=== PATIENT | male | born 2000 | race Caucasian/White ===

== ENCOUNTER 2023-05-15 09:50 | Inpatient (IN) ==
[2023-05-15 11:24] LABS: Hematocrit 36.2 % (38-53); Hemoglobin 12.5 g/dL (13.2-16.3); Mean Corpuscular Hemoglobin 28.9 pg (27-33); Mean Corpuscular Hgb Conc 34.5 g/dL (31-36); Mean Corpuscular Volume 83.8 fL (80-97); Platelet Count 256 10^3/uL (150-450); Red Blood Count 4.32 10^6/uL (4.06-5.63); Red Cell Distribution Width 13.3 % (12-17); White Blood Count 16.1 10^3/uL (3.6-10.2)
[2023-05-15 11:34] LABS: Calcium 8.8 mg/dL (8.6-10.3); Magnesium 1.9 mg/dL (1.9-2.7); Potassium 3.7 mmol/L (3.5-5.0)
[2023-05-15 11:40] LABS: C Reactive Protein 233.35 mg/L (<8.01); Creatinine, Serum 0.8 mg/dL (0.67-1.17); eGFR CKD-EPI 126.7 (>60)
[2023-05-15] MEDS ORDERED: Magnesium Sulfate IV 1GM/100ML 1 GM/100 ML BAG IV ONE (11:41)
[2023-05-15] MEDS ORDERED: Potassium Chlor 20 meq TAB.ER PO ONE (11:41)
[2023-05-15 12:48] LABS: Erythrocyte Sed Rate 31 mm/Hr (0-14)
[2023-05-15 13:06] LABS: High Sensitivity Troponin 1 Hr 3899 pg/mL (<20)
[2023-05-15 15:23] LABS: TSH Ultra Thyroid Stim Horm 1.26 mcIU/mL (0.34-5.60)
[2023-05-15 15:25] LABS: Free T3 3.92 pg/mL (2.5-3.9); Free T4 1.06 ng/dL (0.61-1.12)
[2023-05-15 15:31] LABS: High Sensitivity Troponin 3 Hr 6600 pg/mL (<20)
[2023-05-15] MEDS ORDERED: Benzocaine (plain) Lozenge 15 MG MT PRN (20:33)
[2023-05-16 06:38] LABS: Hematocrit 37.5 % (38-53); Hemoglobin 12.8 g/dL (13.2-16.3); Mean Corpuscular Hemoglobin 28.5 pg (27-33); Mean Corpuscular Hgb Conc 34.1 g/dL (31-36); Mean Corpuscular Volume 83.7 fL (80-97); Platelet Count 272 10^3/uL (150-450); Red Blood Count 4.47 10^6/uL (4.06-5.63); Red Cell Distribution Width 13.2 % (12-17); White Blood Count 14.5 10^3/uL (3.6-10.2)
[2023-05-16 06:45] LABS: Calcium 8.7 mg/dL (8.6-10.3); Creatinine, Serum 0.75 mg/dL (0.67-1.17); Magnesium 2.1 mg/dL (1.9-2.7); Potassium 4.1 mmol/L (3.5-5.0); eGFR CKD-EPI 129.2 (>60)
[2023-05-16 13:10] LABS: C Reactive Protein 220.9 mg/L (<8.01)
[2023-05-16 13:59] LABS: C Reactive Protein 198.01 mg/L (<8.01)
[2023-05-16 16:20] LABS: Rapid Strep Molecular Negative (Negative)
[2023-05-17 06:38] LABS: ABS Eosinophils 0.3 10^3/uL (0.0-0.5); ABS Lymphocytes 3.2 10^3/uL (1.0-4.8); ABS Monocytes 0.9 10^3/uL (0.0-1.1); ABS Neutrophils 5.4 10^3/uL (1.5-7.6); ABS Nucleated RBC 0.01 10^3/ul; Eosinophil % 2.7 %; Hemoglobin 13.8 g/dL (13.2-16.3); Lymphocyte % 32.2 %; Mean Corpuscular Hgb Conc 34.6 g/dL (31-36); Mean Corpuscular Volume 83.9 fL (80-97); Mean Platelet Volume 6.9 fL (7.5-11.2); Nucleated Red Blood Cells % 0.1 %/100WBC (0.0-0.8); Platelet Count 321 10^3/uL (150-450); Red Blood Count 4.77 10^6/uL (4.06-5.63); Red Cell Distribution Width 13.4 % (12-17); White Blood Count 9.9 10^3/uL (3.6-10.2)
[2023-05-17 06:48] LABS: C Reactive Protein 137.55 mg/L (<8.01); Calcium 8.9 mg/dL (8.6-10.3); Creatinine, Serum 0.77 mg/dL (0.67-1.17); eGFR CKD-EPI 128.2 (>60)
[2023-05-18 05:47] LABS: ABS Basophils 0.1 10^3/uL (0.0-0.1); ABS Eosinophils 0.2 10^3/uL (0.0-0.5); ABS Lymphocytes 3.1 10^3/uL (1.0-4.8); ABS Monocytes 0.9 10^3/uL (0.0-1.1); ABS Neutrophils 4.9 10^3/uL (1.5-7.6); ABS Nucleated RBC 0.01 10^3/ul; Eosinophil % 2.7 %; Hematocrit 38.9 % (38-53); Hemoglobin 13.5 g/dL (13.2-16.3); Lymphocyte % 33.7 %; Mean Corpuscular Hemoglobin 29.1 pg (27-33); Mean Corpuscular Hgb Conc 34.7 g/dL (31-36); Mean Corpuscular Volume 83.7 fL (80-97); Mean Platelet Volume 6.6 fL (7.5-11.2); Nucleated Red Blood Cells % 0.1 %/100WBC (0.0-0.8); Platelet Count 385 10^3/uL (150-450); Red Blood Count 4.65 10^6/uL (4.06-5.63); Red Cell Distribution Width 13.6 % (12-17); White Blood Count 9.1 10^3/uL (3.6-10.2)
[2023-05-18 06:03] LABS: Albumin 3.8 g/dL (3.2-5.2); Albumin/Globulin Ratio 1.2 (1-3); Calcium 8.8 mg/dL (8.6-10.3); Creatinine, Serum 0.78 mg/dL (0.67-1.17); Globulin 3.1 g/dL (2-4); Potassium 4.1 mmol/L (3.5-5.0); Total Bilirubin 0.2 mg/dL (0.2-1.0); Total Protein 6.9 g/dL (6.4-8.9); eGFR CKD-EPI 127.7 (>60)
[2023-05-18 09:55] VITALS: BP 121/69
[2023-05-18] MEDS ORDERED: Benzocaine/Menthol LOZ MT PRN (10:49)
[2023-05-18 11:15] LABS: High Sensitivity Troponin 1 Hr 497 pg/mL (<20)
[2023-05-18 14:32] LABS: NT-Pro B-Type Natriuretic Pep 416 pg/mL (<79)
[2023-05-19 00:24] LABS: Anaplasma phagocytophilum Negative (Negative); B. miyamotoi PCR, B Negative (Negative); Babesia divergens/MO-1 Negative (Negative); Babesia ducani Negative (Negative); Ehrlichia chaffeensis Negative (Negative); Ehrlichia ewingii/canis Negative (Negative); Ehrlichia muris eauclairensis Negative (Negative)
== END 2023-05-18 13:00 | disposition home or self-care (01) | DRG 207 ==
LOC: EDHOLD 09:50 → ED 09:50 → SUATTDRO 10:15 → MEDTELE 10:15
PROVIDERS: ADMIT Student in an Organized Health Care Education/Training Program; ATTEND Internal Medicine Hematology & Oncology